=== PATIENT | male | born 1980 | race Caucasian/White ===

== ENCOUNTER 2021-11-04 18:55 | Emergency (ER) | payer SELFPAY ==
[~2021-11-04] VITALS: Ht 177 cm; Wt 77.0 kg
[2021-11-04 18:58] VITALS: BP 143/93
--- NOTE | 2021-11-04 19:42 | Diagnostic Imaging Report ---
EXAMINATION: Chest 1 view. HISTORY: Chest tightness. COMPARISON: None available. FINDINGS: Heart size and pulmonary vasculature are normal. The lungs are clear without consolidation, pleural effusion or pneumothorax. The osseous structures are intact. IMPRESSION: No acute radiographic abnormality in the chest. Dictated by: Dictated on workstation # [id number]
[2021-11-04] MEDS ORDERED: ACETAMINOPHEN 325 MG TABLET PO ONE (19:45)
[2021-11-04 20:27] LABS: BASOPHILS % (AUTO) 0 % (0-10); EOSINOPHILS # (AUTO) 0.1 10^3/uL (0.0-0.3); EOSINOPHILS % (AUTO) 1 % (0-10); HEMATOCRIT 48 % (40-54); HEMOGLOBIN 16.7 g/dL (13.3-17.7); LYMPHOCYTES # (AUTO) 1.8 10^3/uL (1.0-4.0); LYMPHOCYTES % (AUTO) 20 % (12-44); MEAN CORPUSCULAR HEMOGLOBIN 31 pg (25-34); MEAN CORPUSCULAR HGB CONC 35 g/dL (32-36); MEAN CORPUSCULAR VOLUME 88 fL (80-99); MONOCYTES # (AUTO) 0.9 10^3/uL (0.0-1.0); MONOCYTES % (AUTO) 10 % (0-12); NEUTROPHILS # (AUTO) 6.2 10^3/uL (1.8-7.8); NEUTROPHILS % (AUTO) 69 % (42-75); PLATELET COUNT 282 10^3/uL (130-400); WHITE BLOOD COUNT 8.9 10^3/uL (4.3-11.0)
--- NOTE | 2021-11-04 20:32 | ED General ---
General Chief Complaint: General Problems/Pain Stated Complaint: WEAKNESS,TINGLING ARMS AND LEGS,TROUBLE BREATHING Nursing Triage Note: Patient c/o tingling in arms/legs and SOA at rest since this afternoon. Patient reports taking xanax for anxiety but has not taken it for over a month. States that these symptoms feel different from what he typically experiences w/ anxiety. History of Present Illness Date Seen by Provider: Nov 04, 2021 Time Seen by Provider: 19:10 Initial Comments 40 yr M with PMH of Anxiety, is here with c/o sudden onset of tingling in his upper and lower extremities with generalized tiredness and lethargy. He also c/o chest tightness which comes and goes, which is associated with some SOB. Pt had COVID 2 weeks ago. Denies current SOB, fever, cough, abdominal pain, diarrhea, dysuria, nausea, vomiting, leg pain or swelling, headache, dizziness. Allergies and Home Medications Allergies Coded Allergies: No Known Drug Allergies (Unverified , 11/04/21) Patient Home Medication List Home Medication List Reviewed: Yes Potassium Chloride (Potassium Chloride) 20 Meq Tab.er.prt, 20 MEQ PO DAILY Prescribed by: TENISHA BAPTISTE MD on 11/04/212206 Review of Systems Review of Systems Constitutional: no symptoms reported EENTM: no symptoms reported Respiratory: no symptoms reported Cardiovascular: other (chest tightness ) Gastrointestinal: no symptoms reported (occassional chest tightness) Genitourinary: no symptoms reported Musculoskeletal: no symptoms reported Skin: no symptoms reported Psychiatric/Neurological: Anxiety, Tingling Past Tlpycnu-Asstbm-Ceogcg Hx Patient Social History Tobacco Use?: No Use of E-Cig and/or Vaping dev: No Substance use?: No Alcohol Use?: Yes Alcohol type: Beer Alcohol Frequency: Daily Pt feels they are or have been: No Physical Exam Vital Signs Vital Signs - First Documented 11/04/21 11/04/21 18:58 20:00 Temp 36.1 Pulse 81 Resp 14 B/P (MAP) 143/93 (110) Pulse Ox 97 O2 Delivery Room Air Capillary Refill : Less Than 3 Seconds Height, Weight, BMI Height: '" Weight: lbs. oz. kg; 24.00 BMI Method: General Appearance: No Apparent Distress HEENT: PERRL/EOMI, Normal ENT Inspection, Pharynx Normal Neck: Full Range of Motion, Normal Inspection, Non Tender, Supple Respiratory: Chest Non Tender, Lungs Clear, Normal Breath Sounds Cardiovascular: Regular Rate, Rhythm, No Edema, No Gallop, No JVD, No Murmur Gastrointestinal: Normal Bowel Sounds, Non Tender, Soft Back: Normal Inspection, No Vertebral Tenderness Extremity: Normal Inspection, Normal Range of Motion Neurologic/Psychiatric: Alert, Oriented x3, No Motor/Sensory Deficits, Normal Mood/Affect, chief architect II-XII Norm as Tested Skin: Normal Color, Warm/Dry Lymphatic: No Adenopathy Progress/Results/Core Measures Suspected Sepsis SIRS Temperature: Pulse: 81 Respiratory Rate: 14 Laboratory Tests 11/04/21 19:06: White Blood Count 8.9 Blood Pressure 143 /93 Mean: 110 Laboratory Tests 11/04/21 19:06: Creatinine 0.90, INR Comment 0.9, Platelet Count 282, Total Bilirubin 0.4 Results/Orders Lab Results Laboratory Tests Test 11/04/21 19:06 11/04/21 19:55 Range/Units White Blood Count 8.9 4.3-11.0 10^3/uL Red Blood Count 5.42 4.30-5.52 10^6/uL Hemoglobin 16.7 13.3-17.7 g/dL Hematocrit 48 40-54 % Mean Corpuscular Volume 88 80-99 fL Mean Corpuscular Hemoglobin 31 25-34 pg Mean Corpuscular Hemoglobin Concent 35 32-36 g/dL Red Cell Distribution Width 11.7 10.0-14.5 % Platelet Count 282 130-400 10^3/uL Mean Platelet Volume 10.0 9.0-12.2 fL Immature Granulocyte % (Auto) 0 % Neutrophils (%) (Auto) 69 42-75 % Lymphocytes (%) (Auto) 20 12-44 % Monocytes (%) (Auto) 10 0-12 % Eosinophils (%) (Auto) 1 0-10 % Basophils (%) (Auto) 0 0-10 % Neutrophils # (Auto) 6.2 1.8-7.8 10^3/uL Lymphocytes # (Auto) 1.8 1.0-4.0 10^3/uL Monocytes # (Auto) 0.9 0.0-1.0 10^3/uL Eosinophils # (Auto) 0.1 0.0-0.3 10^3/uL Basophils # (Auto) 0.0 0.0-0.1 10^3/uL Immature Granulocyte # (Auto) 0.0 0.0-0.1 10^3/uL Prothrombin Time 12.2 12.2-14.7 SEC INR Comment 0.9 0.8-1.4 Activated Partial Thromboplast Time 26 24-35 SEC D-Dimer 0.26 0.00-0.49 UG/ML Sodium Level 140 135-145 MMOL/L Potassium Level 3.1 L 3.6-5.0 MMOL/L Chloride Level 100 98-107 MMOL/L Carbon Dioxide Level 25 21-32 MMOL/L Anion Gap 15 H 5-14 MMOL/L Blood Urea Nitrogen 6 L 7-18 MG/DL Creatinine 0.90 0.60-1.30 MG/DL Estimat Glomerular Filtration Rate 110 BUN/Creatinine Ratio 7 Glucose Level 97 70-105 MG/DL Calcium Level 10.3 H 8.5-10.1 MG/DL Corrected Calcium 8.5-10.1 MG/DL Magnesium Level 2.2 1.6-2.4 MG/DL Total Bilirubin 0.4 0.1-1.0 MG/DL Aspartate Amino Transf (AST/SGOT) 27 5-34 U/L Alanine Aminotransferase (ALT/SGPT) 34 0-55 U/L Alkaline Phosphatase 72 40-136 U/L Troponin I < 0.30 <0.30 NG/ML C-Reactive Protein 0.49 <0.50 MG/DL Total Protein 8.7 H 6.4-8.2 GM/DL Albumin 5.0 H 3.2-4.5 GM/DL Serum Alcohol 41 H <10 MG/DL Urine Color YELLOW Urine Clarity CLEAR Urine pH 7.0 5-9 Urine Specific [place] <=1.005 1.016-1.022 Urine Protein NEGATIVE NEGATIVE Urine Glucose (UA) NEGATIVE NEGATIVE Urine Ketones NEGATIVE NEGATIVE Urine Nitrite NEGATIVE NEGATIVE Urine Bilirubin NEGATIVE NEGATIVE Urine Urobilinogen 0.2 < = 1.0 MG/DL Urine Leukocyte Esterase NEGATIVE NEGATIVE Urine RBC (Auto) NEGATIVE NEGATIVE Urine RBC NONE /HPF Urine WBC NONE /HPF Urine Crystals NONE /LPF Urine Bacteria NEGATIVE /HPF Urine Casts NONE /LPF Urine Mucus NEGATIVE /LPF Urine Culture Indicated NO Urine Opiates Screen NEGATIVE NEGATIVE Urine Oxycodone Screen NEGATIVE NEGATIVE Urine Methadone Screen NEGATIVE NEGATIVE Urine Propoxyphene Screen NEGATIVE NEGATIVE Urine Barbiturates Screen NEGATIVE NEGATIVE Ur Tricyclic Antidepressants Screen NEGATIVE NEGATIVE Urine Phencyclidine Screen NEGATIVE NEGATIVE Urine Amphetamines Screen NEGATIVE NEGATIVE Urine Methamphetamines Screen NEGATIVE NEGATIVE Urine Benzodiazepines Screen NEGATIVE NEGATIVE Urine Cocaine Screen NEGATIVE NEGATIVE Urine Cannabinoids Screen NEGATIVE NEGATIVE My Orders Orders - TENISHA BAPTISTE MD Cbc With Automated Diff (11/04/21 19:26) Comprehensive Metabolic Panel (11/04/21 19:26) Magnesium (11/04/21 19:26) Ua Culture If Indicated (11/04/21:26) Troponin I Fs (11/04/21 19:26) Chest 1 View Ap/Pa Only (11/04/21 19:27) Vital Signs: Every 4 Hours (Or (11/04/21 19:32) Monitor-Rhythm Ecg Trace Only (11/04/21 19:32) Ferritin (11/04/21 19:32) Crp Fs (11/04/21 19:32) Protime With Inr (11/04/21 19:32) Partial Thromboplastin Time (11/04/21 19:32) Fibrinogen (11/04/21 19:32) Ekg Tracing (11/04/21 19:32) Fibrin Degradation Products (11/04/21 19:34) Drug Screen Stat (Urine) (11/04/21 21:13) Alcohol (11/04/21 21:13) Potassium Chloride (Tablet) (K Dur Table (11/04/21 21:31) Ns Iv 1000 Ml (Sodium Chloride 0.9%) (11/04/21 21:45) Vital Signs/I&O 11/04/21 11/04/21 11/04/21 11/04/21 18:58 20:00 21:00 22:08 Temp 36.1 Pulse 81 78 68 70 Resp 14 17 17 16 B/P (MAP) 143/93 (110) 149/95 119/80 159/90 Pulse Ox 97 97 100 O2 Delivery Room Air Room Air Room Air Room Air Capillary Refill : Less Than 3 Seconds Blood Pressure Mean: 110 Progress Note : Progress Note 1. HYPOKALEMIA/ MILD DEHYDRATION: - s. K is 3.1 - Oral potassium in ER , and IVF 1L -CXR, Labs and UA: unremarkable -D-dimer: normal - Pt had COVID 2 weeks back and pt could have residual fatigue from that, versus symptoms of anxiety. Pt has not taken his anxiety medication for one month. Discussed head CT with pt but he did not want that, but stated he would come back to the ER to get one if his symptoms worsened or didn't improve. - Prescription for 3 days of oral potassium with advice to get potassium level recheck on Monday with his PCP - Pt's s. ETOH is high because he drank 3 beers at a today. -The patient was seen in the ED, and treated appropriately to presentation at a specific point in time. Patient is informed that there is a possibility that disease and illness can evolve and change in acuity rapidly or slowly after patient is discharged from the ER. Precautionary advice given to the patient for immediate return to ER if symptoms worsen or do not resolve, and to seek emergency care sooner rather than later. Pt also advised on the importance of PCP follow up and compliance with management and follow up plan. Pt verbally expressed understanding. ECG Initial ECG Impression Date: Nov 04, 2021 Initial ECG Impression Time: 19:05 Initial ECG Rate: 75 Initial ECG Rhythm: Normal Sinus Initial ECG Impression: Normal (initial PVC's which later resolved) Diagnostic Imaging Diagonstic Imaging: Xray Plain Films/CT/US/NM/MRI: chest Comments [place], [place] NAME: KASEY [facility]ABRIEL [facility] REC#: [id number] PT STATUS: REG ER : 1980 PHYSICIAN: TENISHA BAPTISTE MD ADMIT DATE: 11/04/21/ER FS Signed Date of Exam:11/04/21 CHEST 1 VIEW AP/PA ONLY EXAMINATION: Chest 1 view. HISTORY: Chest tightness. COMPARISON: None available. FINDINGS: Heart size and pulmonary vasculature are normal. The lungs are clear without consolidation, pleural effusion or pneumothorax. The osseous structures are intact. IMPRESSION: No acute radiographic abnormality in the chest. Dictated by: Dictated on workstation # [id number] Dict: 11/04/211939 Trans: 11/04/211950 PJE [id number] Interpreted by: SANDEEP ONEIL DO Electronically signed by: SANDEEP ONEIL DO 11/04/211950 Departure Impression Primary Impression: Hypokalemia Additional Impressions: Dehydration, mild Anxiety Fatigue Qualified Codes: R53.82 - Chronic fatigue, unspecified Disposition: 01 HOME, SELF-CARE Condition: Stable Departure-Patient Inst. Referrals: MICHAEL KNIGHT MD (PCP/Family) Primary Care Physician Patient Instructions: Hypokalemia (DC), Fatigue (DC) Add. Discharge Instructions: F/u with PCP on Monday for lab draw to recheck potassiumlevels - Potassium 20mEq daily for 3 days. - If symptoms get worse, come to the ER All discharge instructions reviewed with patient and/or family. Voiced understanding. Scripts Potassium Chloride (Potassium Chloride) 20 Meq Tab.er.prt 20 MEQ PO DAILY for 3 Days, #3 % Prov: TENISHA BAPTISTE MD 11/04/21 TENISHA BAPTISTE MD Nov 04, 2021 20:32
[2021-11-04 20:41] LABS: BILIRUBIN,URINE NEGATIVE (NEGATIVE); CLARITY,URINE CLEAR; COLOR,URINE YELLOW; GLUCOSE, URINE (UA) NEGATIVE (NEGATIVE); KETONES,URINE NEGATIVE (NEGATIVE); LEUKOCYTE ESTERASE ,URINE NEGATIVE (NEGATIVE); NITRITE,URINE NEGATIVE (NEGATIVE); PROTEIN,URINE NEGATIVE (NEGATIVE)
[2021-11-04 20:46] LABS: INR 0.9 (0.8-1.4); PROTHROMBIN TIME PATIENT 12.2 SEC (12.2-14.7)
[2021-11-04 20:47] LABS: BACTERIA,URINE NEGATIVE /HPF
[2021-11-04 20:53] LABS: ALKALINE PHOSPHATASE 72 U/L (40-136); BILIRUBIN,TOTAL 0.4 MG/DL (0.1-1.0); BUN/CREATININE RATIO 7; CALCIUM 10.3 MG/DL (8.5-10.1); CARBON DIOXIDE 25 MMOL/L (21-32); CHLORIDE 100 MMOL/L (98-107); FIBRIN DEGRADATION PRODUCTS 0.26 UG/ML (0.00-0.49); GFR ESTIMATED 110; GLUCOSE 97 MG/DL (70-105); MAGNESIUM 2.2 MG/DL (1.6-2.4); POTASSIUM 3.1 MMOL/L (3.6-5.0); SODIUM 140 MMOL/L (135-145)
[2021-11-04 20:54] LABS: ALANINE AMINOTRANSFERASE 34 U/L (0-55); TOTAL PROTEIN 8.7 GM/DL (6.4-8.2)
[2021-11-04] MEDS ORDERED: KCL 20 MEQ TAB (K-DUR) PO STA (21:31)
[2021-11-04 21:32] LABS: BENZODIAZEPINES SCREEN URINE NEGATIVE (NEGATIVE); COCAINE SCREEN URINE NEGATIVE (NEGATIVE)
[2021-11-04 21:33] LABS: AMPHETAMINE SCREEN, URINE NEGATIVE (NEGATIVE); BARBITURATE SCREEN URINE NEGATIVE (NEGATIVE); CANNABINOID SCREEN, URINE NEGATIVE (NEGATIVE); METHADONE STAT NEGATIVE (NEGATIVE); METHAMPHETAMINE SCREEN URINE S NEGATIVE (NEGATIVE); OPIATE SCREEN URINE NEGATIVE (NEGATIVE); OXYCODONE STAT NEGATIVE (NEGATIVE); PROPOXYPHENE STAT NEGATIVE (NEGATIVE); TRICYCLIC ANTIDEPRESSANTS SCRE NEGATIVE (NEGATIVE)
[2021-11-04] MEDS ORDERED: NS IV 1000 ML 1,000 ML IV SCH (21:45)
[2021-11-04] MEDS ORDERED: POTA-179 PO (22:07)
== END 2021-11-04 22:25 | disposition home or self-care (01) ==
LOC: ER FS 18:57
DX: E87.6 Hypokalemia (principal); E86.0 Dehydration; F41.9 Anxiety disorder, unspecified; R53.83 Other fatigue
CPT/HCPCS: 36415; 71045; 80053; 80306; 81000; 82728; 83735; 84484; 85025; 85379; 85384; 85610; 85730; 86141; 93005; 93041; 99284; G0480; 80320